=== PATIENT | female | born 1990 | race Caucasian/White ===

== ENCOUNTER 2021-04-28 18:50 | Emergency (ER) | payer BC ==
[2021-04-28 19:00] VITALS: BP 117/85; PULSE 96; RESP 18; TEMP 98.4
--- NOTE | 2021-04-28 20:45 | XR ---
EXAMINATION TYPE: XR chest 2V DATE OF EXAM: 04/28/2021 COMPARISON: NONE HISTORY: Cough TECHNIQUE: Frontal and lateral views of the chest are obtained. FINDINGS: There is no focal air space opacity, pleural effusion, or pneumothorax seen. The cardiac silhouette size is within normal limits. The osseous structures are intact. IMPRESSION: No acute cardiopulmonary process.
--- NOTE | 2021-04-28 21:00 | ED ---
ENT HPI - General Chief complaint: ENT Stated complaint: poss food in throat Time Seen by Provider: 04/28/21 19:45 Source: patient Mode of arrival: ambulatory Limitations: no limitations - History of Present Illness Initial comments: 30-year-old male presents to the emergency room with a chief complaint of possible food stuck in her throat. Patient reports she was eating cantaloupe when some of the juice went into the "wrong pipe". States having repetitive coughing episodes. She reported having some chest pain after this event which is has gradually resolved. She also reported some changes to her voice which are also improving. States she has been otherwise tolerating solids and liquids without any difficulty. She denies any nausea or vomiting or diarrhea. Denies any difficulty breathing. - Related Data Allergies Allergy/AdvReac Type Severity Reaction Status Date / Time No Known Allergies Allergy Verified 04/28/21 18:57 Review of Systems ROS Statement: Those systems with pertinent positive or pertinent negative responses have been documented in the HPI. ROS Other: All systems not noted in ROS Statement are negative. Past Medical History Past Medical History: No Reported History History of Any Multi-Drug Resistant Organisms: None Reported Past Surgical History: No Surgical Hx Reported Past Psychological History: No Psychological Hx Reported Smoking Status: Never smoker Past Alcohol Use History: None Reported Past Drug Use History: None Reported General Exam Limitations: no limitations General appearance: alert, in no apparent distress Head exam: Present: atraumatic, normocephalic, normal inspection Eye exam: Present: normal appearance, PERRL, EOMI Pupils: Present: normal accommodation ENT exam: Present: normal exam, normal oropharynx, mucous membranes moist Neck exam: Present: normal inspection, full ROM. Absent: tenderness Respiratory exam: Present: normal lung sounds bilaterally. Absent: respiratory distress, rales Cardiovascular Exam: Present: regular rate, normal rhythm, normal heart sounds. Absent: systolic murmur Extremities exam: Present: normal inspection, full ROM, normal capillary refill. Absent: tenderness, pedal edema, joint swelling Back exam: Present: normal inspection, full ROM. Absent: tenderness, CVA tenderness (R), CVA tenderness (L) Neurological exam: Present: alert, oriented X3 Psychiatric exam: Present: normal affect, normal mood Skin exam: Present: warm, dry, intact, normal color Course Vital Signs 04/28/21 18:57 Temperature 98.4 F Pulse Rate 96 Respiratory 18 Rate Blood Pressure 117/85 O2 Sat by Pulse 98 Oximetry Medical Decision Making - Medical Decision Making 30-year-old female presents to emergency Department with the chief complaint possible stroke for in the throat. Physical examination is unremarkable. Patient is well-appearing with no signs of respiratory distress. Chest x-ray is unremarkable. Patient likely aspirated part of the cantaloupe. Patient is tolerating orals here without any difficulty. Return parameters were thoroughly discussed with patient worsening agreeable. Case discussed with Disposition Clinical Impression: Aspiration of liquid Disposition: HOME SELF-CARE Condition: Stable Instructions (If sedation given, give patient instructions): Aspiration Precautions (ED) Additional Instructions: Please return to the Emergency Department if symptoms worsen or any other concerns. Is patient prescribed a controlled substance at d/c from ED?: No Referrals: Perla Bolivar MD [Primary Care Provider] - 1-2 days Time of Disposition: 21:00
== END 2021-04-28 21:13 | disposition home or self-care (01) ==
LOC: EC 18:50
DX: R05 Cough (principal); R07.9 Chest pain, unspecified; Y84.4 Aspiration of fluid as the cause of abnormal reaction of the patient, or of later complication, without mention of misadventure at the time of the procedure
CPT/HCPCS: 71046; 99283